=== PATIENT | male | born 1970 | race Caucasian/White ===

== ENCOUNTER 2018-12-04 10:29 | Emergency (ER) | payer OTHER ==
[~2018-12-04] VITALS: Ht 182.9 cm; Wt 86.2 kg
--- OUTSIDE RECORDS SUMMARY | 2018-12-04 10:31 | XMS REPORT ---
Author Author Ellen Tellez Organization [employer] Address Unknown Phone Unavailable Care Team Providers Care Judicial Registrar Name Role Phone Ellne Tellez CP Unavailable Allergies, Adverse Reactions, Alerts Substance Reaction Event Type N.K.D.A. Info Not Available Non Drug Allergy Problems Problem Type Condition Code Onset Dates Condition Status Assessment BMI 27.0-27.9,adult Z68.27 Active Assessment Overweight (BMI 25.0-29.9) E66.3 Active Problem BMI 27.0-27.9,adult Z68.27 Active Problem Essential hypertension I10 Active Problem Overweight (BMI 25.0-29.9) E66.3 Active Assessment Essential hypertension I10 Active Assessment Gastroesophageal reflux disease without esophagitis K21.9 Active Problem Gastroesophageal reflux disease without esophagitis K21.9 Active Assessment Annual physical exam Z00.00 Active Medications Medication Code System Code Instructions Start Date End Date Status Dosage Metoprolol Tartrate [facility] 33056401852 25 MG Orally Twice a day Active 1 tablet with food Nexium ND 25240511217 40 MG Orally Once a day Active 1 capsule Vital Signs Date/Time: Dec 13, 2017 BMI 27.01 Index Weight 193.7 lbs Height 71 in Temperature 98.4 F Cardiac Monitoring Heart Rate 82 /min Blood Pressure Diastolic 94 mm Hg Blood Pressure Systolic 139 mm Hg Results No Known Results Summary Purpose [employer] Submission
--- OUTSIDE RECORDS SUMMARY | 2018-12-04 10:31 | XMS REPORT | Continuity of Care Document ---
Author Author [facility] Address Unknown Phone Unavailable Problems Problem Status Onset Date Classification Date Reported Comments Source Essential hypertension 12/01/2017 Diagnosis 12/01/2017 [facility] Diabetes mellitus 12/01/2017 Diagnosis 12/01/2017 [facility] Body mass index 25-29 - overweight 12/01/2017 Diagnosis 12/01/2017 [facility] Essential Hypertension Problem 12/01/2017 [facility] BMI 27.0-27.9,adult Active Problem 12/27/2017 [facility] Overweight Active Problem 12/27/2017 [facility] Essential hypertension Active Diagnosis 12/27/2017 [facility] Gastroesophageal reflux disease without esophagitis Active Diagnosis 12/27/2017 [facility] Hypertriglyceridemia Active Problem 12/27/2017 [facility] Low vitamin D level Active Problem 12/27/2017 [facility] Elevated LFTs Active Problem 12/27/2017 [facility] Prediabetes Active Problem 12/27/2017 [facility] Primary Medications Medication Details Route Status Patient Instructions Ordering Provider Order Date Source Ergocalciferol 1 capsule Orally Active [address]404 UNIT Orally once a week [facility] 12/26/2017 [facility] Metoprolol Succinate as directed Orally Active 50 mg Orally daily [facility] 12/26/2017 [facility] Primary Metoprolol Tartrate 25 MG Oral Tablet metoprolol tartrate 25 mg tablet Take 1 Tab PO QD [facility] Tartrate 1 tablet with food Orally Active 25 MG Orally Twice a day [facility] Nexium 1 capsule Orally Active 40 MG Orally Once a day [facility] Primary Allergies, Adverse Reactions, Alerts Substance Category Reaction Severity Reaction type Status Date Reported Comments Source N.K.D.A. Adverse Reaction Info Not Available Adverse Reaction Active 12/26/2017 [facility] Immunizations Immunization Date Given Site Status Last Updated Comments Source Results Order Name Results Value Reference Range Date Interpretation Comments Source Vital Signs Vital Sign Value Date Comments Source Weight 191.5 12/26/2017 [facility] Height 71 12/26/2017 [facility] Temperature Oral (F) 97.2 F 12/26/2017 [facility] Heart Rate 93 12/26/2017 [facility] Diastolic (mm Hg) 101 12/26/2017 [facility] Systolic (mm Hg) 150 12/26/2017 [facility] Weight 193.7 12/13/2017 [facility] Height 71 12/13/2017 [facility] Temperature Oral (F) 98.4 F 12/13/2017 [facility] Heart Rate 82 12/13/2017 [facility] Diastolic (mm Hg) 94 12/13/2017 [facility] Systolic (mm Hg) 139 12/13/2017 [facility] Diastolic (mm Hg) 84 12/01/2017 [facility] Height 72 12/01/2017 [facility] Systolic (mm Hg) 128 12/01/2017 [facility] Weight 185 12/01/2017 [facility] Diastolic (mm Hg) 86 06/29/2016 [facility] Height 72 06/29/2016 [facility] Systolic (mm Hg) 126 06/29/2016 [facility] Weight 190 06/29/2016 [facility] Encounters Location Location Details Encounter Type Encounter Number Reason For Visit Attending Provider ADM Date DC Date Status Source [place] - [facility] - [id number] Vora, ALGEBRA TUTOR: [address] [place] [address], Ph. [id number] Adrianna Vora 06/29/2016 [facility] [place] [facility] - [id number] SalterP-C: [address] [place] [address], Ph. [id number] Maira Umaña 12/01/2017 [facility] Procedures Procedure Code Date Perfomer Comments Source
--- OUTSIDE RECORDS SUMMARY | 2018-12-04 10:31 | XMS REPORT | Encounter Summary ---
Author Organization Unknown Address [address] [place] [address] Phone [phone] Reason for Visit Medical Complaint Instructions 1. Essential hypertension metoprolol tartrate 25 mg tablet high blood pressure: care instructions 2. Diabetes mellitus 3. Body mass index 25-29 - overweight Discussion Note Pt is in NAD; Verbalizes understanding of all instructions with no questions at this time. Plan of Care Patient Instructions Recommend monitor BP and blood sugars at home and document, bring BP and blood sugar log to PCP for review. Recommend follow a low sodium/fat and carb diet and exercise 30-45 mins/d 3-4 days a week. Take medications as prescribed. Follow up with Dr Harris on 12-07-17 @ 9 AM. Reminders Provider Appointments None recorded. Lab None recorded. Referral None recorded. Procedures None recorded. Surgeries None recorded. Imaging None recorded. Medications Name Start Date metoprolol tartrate 25 mg tablet Take 1 Tab PO QD Medications Administered None recorded. Vitals Height Weight BMI Blood Pressure 6 ft 185 lbs 25.1 kg/m2 128/84 mm[Hg] Lab Results None recorded. Allergies Code Code System Name Reaction Severity Status Onset NKDA Problems Name Status Onset Date Source Essential Hypertension Active Encounter Procedures None recorded. Vaccine List None recorded. Social History Smoking Status Never Smoker Past Encounters 12/01/2017 Essential Hypertension; Diabetes Mellitus; Body Mass Index 25-29 - Overweight Maira Umaña, STATISTICS PROFESSOR-C: [address] [place] [address], Ph. History of Present Illness One Time Refill Reported By: Patient HPI: Context: Patient here for medication refill, Why does patient require med refills at [facility]? (double click for free text answer). Quality: What medical problems does patient require refills for? (double click for free text), What medications does patient require refills for? (double click for free text). Duration: How long has patient been taking above medications? > 1 year. Onset/Timing: How long has patient been out of medication? < 1 week Review of Systems:ROS as noted in the HPI Review of Systems Basic Reported By: Patient Physical Exam Adult Basic, Adult Female Complete, Adult Male Complete Reported By: Patient Constitutional: General Appearance: healthy-appearing, well-nourished, well-developed, overweight. Level of Distress: NAD. Ambulation: ambulating normally Psychiatric: Mental Status: active and alert. Orientation: to time, to place, to person Eyes: Lids and Conjunctivae: non-injected. Pupils: PERRLA. Vision: peripheral vision grossly intact Egf-Tcpb-Vhmgi-Throat: Ears: no lesions on external ear, no outer ear tenderness, EACs clear, TMs clear. Hearing: no hearing loss. Nose: no lesions on external nose, nares patent, no septal deviation, nasal passages clear, no sinus tenderness, no nasal discharge. Lips, Teeth, and Gums: no mouth or lip ulcers, no bleeding gums, normal dentition. Oropharynx: moist mucous membranes, no erythema, no exudates, tonsils not enlarged Neck: Neck: supple. Lymph Nodes: no cervical LAD Lungs: Respiratory effort: no dyspnea, no tachypnea, no use of accessory muscles, no intercostal retractions. Auscultation: breath sounds normal, good air movement Cardiovascular: Heart Auscultation: RRR, no murmurs. Neck vessels: no carotid bruits. Pulses including femoral / pedal: normal throughout Neurologic: Gait and Station: normal gait, normal station. Cranial Nerves: grossly intact
--- OUTSIDE RECORDS SUMMARY | 2018-12-04 10:31 | XMS REPORT ---
Author Author Ellen Tellez Organization [employer] Address Unknown Phone Unavailable Care Team Providers Care Track Production Engineer Name Role Phone Ellen Tellez CP Unavailable Allergies, Adverse Reactions, Alerts Substance Reaction Event Type N.K.D.A. Info Not Available Non Drug Allergy Problems Problem Type Condition Code Onset Dates Condition Status Assessment Gastroesophageal reflux disease without esophagitis K21.9 Active Problem BMI 27.0-27.9,adult Z68.27 Active Assessment Essential hypertension I10 Active Problem Hypertriglyceridemia E78.1 Active Problem Low vitamin D level E55.9 Active Problem Elevated LFTs R79.89 Active Problem Gastroesophageal reflux disease without esophagitis K21.9 Active Problem Overweight (BMI 25.0-29.9) E66.3 Active Problem Prediabetes R73.03 Active Problem Essential hypertension I10 Active Assessment Prediabetes R73.03 Active Assessment Low vitamin D level E55.9 Active Assessment BMI 27.0-27.9,adult Z68.27 Active Assessment Hypertriglyceridemia E78.1 Active Assessment Overweight (BMI 25.0-29.9) E66.3 Active Assessment Elevated LFTs R79.89 Active Medications Medication Code System Code Instructions Start Date End Date Status Dosage Ergocalciferol ND 38260303517 07925 UNIT Orally once a week Dec 26, 2017 March 26, 2018 Active 1 capsule Metoprolol Tartrate NDC 14871398936 25 MG Orally Twice a day Inactive 1 tablet with food Nexium NDC 25459882737 40 MG Orally Once a day Active 1 capsule Metoprolol Succinate NDC 0 50 mg Orally daily Dec 26, 2017 March 26, 2018 Active as directed Vital Signs Date/Time: Dec 26, 2017 BMI 26.71 Index Weight 191.5 lbs Height 71 in Temperature 97.2 F Cardiac Monitoring Heart Rate 93 /min Blood Pressure Diastolic 101 mm Hg Blood Pressure Systolic 150 mm Hg Results No Known Results Summary Purpose [employer] Submission
--- OUTSIDE RECORDS SUMMARY | 2018-12-04 10:31 | XMS REPORT | Encounter Summary ---
Author Organization Unknown Address [address] [place] [address] Phone [phone] Reason for Visit Medical Complaint Instructions 1. Essential hypertension dash diet: care instructions high blood pressure: care instructions metoprolol tartrate 25 mg tablet Discussion Note: None recorded. Plan of Care Patient Instructions Please follow up with PCP for further follow up and evaluation. Please monitor BP regularly, keep BP log and take it when you go to PCP, seek medical advice or go to ER if any dizziness, chest pain, shortness of breath, head ache, weakness or numbness. Please read all the side effects of the medications, if you develop any side effects immediately stop the medication and please contact your PCP/UC/ER or [facility] or call 911. Patient verbalizes understanding and agrees to the plan. Reminders Provider Appointments None recorded. Lab None recorded. Referral None recorded. Procedures None recorded. Surgeries None recorded. Imaging None recorded. Medications Name Start Date metoprolol tartrate 25 mg tablet Take 1 tablet every day by oral route for 30 days. Medications Administered None recorded. Vitals Height Weight BMI Blood Pressure 6 ft 190 lbs 25.8 126/86 Lab Results None recorded. Allergies Name Reaction Severity Onset NKDA Problems Name Status Onset Date Source Essential Hypertension Active Encounter Procedures None recorded. Vaccine List None recorded. Social History Smoking Status Never Smoker Past Encounters 06/29/2016 Essential Hypertension Adrianna Vora, HOME FIRE ALARM INSTALLER: [address] [place] [address], Ph. History of Present Illness One Time Refill Reported By: Patient HPI: Context: Patient here for medication refill, Why does patient require med refills at [facility]? (double click for free text answer). Quality: What medical problems does patient require refills for? (double click for free text), What medications does patient require refills for? (double click for free text). Duration: How long has patient been taking above medications? < 1month. Onset/Timing: How long has patient been out of medication? still has some Review of Systems Basic Reported By: Patient Constitutional: Constitutional: no fever Eyes: Eyes: no eye complaints Hwgw-Apcj-Xqjxs-Throat: Ears: no ear complaints. Nose: no nose/sinus problems. Mouth/Throat: no sore throat, no bleeding gums, no mouth complaints, no teeth problems Cardiovascular: Cardiovascular: no chest pain, no shortness of breath, no known heart murmur Respiratory: Respiratory: no cough, no wheezing, no shortness of breath Gastrointestinal: Gastrointestinal: no abdominal pain, no vomiting / diarrhea Genitourinary: Genitourinary: no urinary complaints, no discharge Musculoskeletal: Musculoskeletal: no muscle aches, no muscle weakness, no arthralgias/joint pain, no back pain Skin: Skin: no abnormal / changing mole, no jaundice, no rashes Neurologic: Neurologic: no loss of consciousness, no weakness, no numbness, no seizures, no dizziness, no headaches Physical Exam Adult Basic, Adult Male Complete Constitutional: General Appearance: healthy-appearing, well-nourished, well-developed. Level of Distress: NAD. Ambulation: ambulating normally Psychiatric: Mental Status: active and alert. Orientation: to time, to place, to person Eyes: Lids and Conjunctivae: non-injected, no discharge, no pallor. Pupils: PERRLA. Corneas: grossly intact. EOM: EOMI. Lens: clear. Sclerae: non-icteric Neck: Neck: supple. Lymph Nodes: no cervical LAD Lungs: Respiratory effort: no dyspnea, no tachypnea. Auscultation: breath sounds normal, good air movement Cardiovascular: Heart Auscultation: RRR, no murmurs. Pulses including femoral / pedal: normal throughout Musculoskeletal:: Extremities: no cyanosis, no edema Neurologic: Gait and Station: normal gait
--- NOTE | 2018-12-04 11:46 | Diagnostic Imaging Report ---
EXAMINATION: CXR 2 VIEW - HOPD INDICATION: Irregular heartbeat. Increased blood pressure. COMPARISON: None FINDINGS: TUBES and LINES: None. LUNGS: Lungs are hyper inflated. Bilateral apical lung sutures, likely related to partial resection. Likely a few scattered calcified lung parenchymal consolidations. Lungs are otherwise clear. There is mild prominence of the central pulmonary vasculature, consistent with pulmonary venous congestion. PLEURA: No pleural effusion or pneumothorax. HEART AND MEDIASTINUM: The cardiomediastinal silhouette is unremarkable. Calcified mediastinal and hilar lymph nodes. BONES AND SOFT TISSUES: No acute osseous lesion. Soft tissues are unremarkable. UPPER ABDOMEN: No free air under the diaphragm. IMPRESSION: 1. Mild nonspecific central venous congestion. This is likely cardiogenic. 2. Normal cardiac silhouette. No pleural effusion. Signed by: Dr. Brennan Zapien M.D. on 12/04/2018 11:43 AM
[2018-12-04 12:05] LABS: BASOPHILS # (AUTO) 0.1 (0.0-0.1); BASOPHILS % 0.8 % (0.0-1.0); EOSINOPHILS # (AUTO) 0.1 (0.0-0.4); EOSINOPHILS % 0.6 % (0.0-6.0); HEMATOCRIT 47.1 % (38.2-49.6); HEMOGLOBIN 16.5 g/dL (14.0-18.0); LYMPHOCYTES # (AUTO) 1.4 (1.0-3.2); LYMPHOCYTES % 17.9 % (18.0-39.1); MEAN CORPUSCULAR HEMOGLOBIN 30.8 pg (28-32); MEAN CORPUSCULAR VOLUME 87.9 fL (81-99); MONOCYTES # (AUTO) 0.6 (0.2-0.8); MONOCYTES % 7.6 % (4.4-11.3); NEUTROPHILS # (AUTO) 5.8 (2.1-6.9); NEUTROPHILS % 72.7 % (38.7-80.0); PLATELET COUNT 175 x10e3/uL (140-360); RED BLOOD COUNT 5.36 x10e6/uL (4.3-5.7); RED CELL DISTRIBUTION WIDTH 13.1 % (11.7-14.4)
[2018-12-04 12:23] LABS: ALANINE AMINOTRANSFERASE 64 IU/L (0-55); ALBUMIN 4.7 g/dL (3.5-5.0); ALBUMIN/GLOBULIN RATIO 1.6 (0.8-2.0); ALKALINE PHOSPHATASE 77 IU/L (40-150); ANION GAP 15.6 mmol/L (8-16); BLOOD UREA NITROGEN 6 mg/dL (7-26); BUN/CREATININE RATIO 6 (6-25); CALCIUM 9.5 mg/dL (8.4-10.2); CARBON DIOXIDE 24 mmol/L (22-29); CHLORIDE 97 mmol/L (98-107); CREATININE, SERUM 0.99 mg/dL (0.72-1.25); EST GLOMERULAR FILTRATION RATE > 60 ML/MIN (60-); GLUCOSE 131 mg/dL (74-118); POTASSIUM 3.6 mmol/L (3.5-5.1); SODIUM 133 mmol/L (136-145)
[2018-12-04 12:47] LABS: CREATINE KINASE 91 IU/L (30-200)
[2018-12-04] MEDS ORDERED: AUGMENTIN 875-1 EACH PO (13:19)
[2018-12-04 13:40] VITALS: BP 156/90
== END 2018-12-04 13:30 | disposition home or self-care (01) ==
LOC: FSED 10:29
DX: R00.2 Palpitations (principal); I10 Essential (primary) hypertension; J01.10 Acute frontal sinusitis, unspecified; E11.9 Type 2 diabetes mellitus without complications; E78.5 Hyperlipidemia, unspecified; K21.9 Gastro-esophageal reflux disease without esophagitis
CPT/HCPCS: 36415; 71046; 80053; 82550; 82553; 83880; 84484; 85025; 93005; 99284